=== PATIENT | male | born 1970 | race Caucasian/White ===

== ENCOUNTER 2018-03-04 15:38 | Inpatient (IN) | payer BC ==
[~2018-03-04] VITALS: Ht 182.9 cm; Wt 129.0 kg
[2018-03-04] MEDS ORDERED: normal saline 1000ML IV soln IV ONE (16:10)
[2018-03-04] MEDS ORDERED: morphine 4 MG/ML inj SYRINge IV ONE ×2 (16:15→17:25)
[2018-03-04 16:36] LABS: BASOPHILS # (AUTO) 0.2 X10'3 (0-0.2); EOSINOPHILS % (AUTO) 0 % (0-6); HEMATOCRIT 48.2 % (42.0-52.0); HEMOGLOBIN 16.3 g/dl (14.0-17.9); LYMPHOCYTES # (AUTO) 0.4 X10'3 (1.1-4.8); LYMPHOCYTES % (AUTO) 1.9 % (21-51); MEAN CORPUSCULAR HEMOGLOBIN 30.3 PG (27.0-31.0); MEAN CORPUSCULAR HGB CONC 33.7 % (33.0-36.5); MEAN CORPUSCULAR VOLUME 89.9 FL (78-98); MEAN PLATELET VOLUME 8.1 FL (7.4-10.4); MONOCYTES # (AUTO) 1.5 X10'3 (0-0.9); MONOCYTES % (AUTO) 6.7 % (2-12); NEUTROPHILS # (AUTO) 20.7 X10'3 (1.8-7.7); NEUTROPHILS % (AUTO) 90.4 % (42-75); PLATELET COUNT 265 X10'3 (140-440); RED BLOOD COUNT 5.37 X10'6 (4.70-6.10); RED CELL DISTRIBUTION WIDTH 13.4 % (11.5-14.5); WHITE BLOOD COUNT 22.9 X10'3 (4.5-11.0)
[2018-03-04 16:55] LABS: ALANINE AMINOTRANSFERASE 45 U/L (12-78); ALBUMIN 3.9 G/DL (3.4-5.0); ALBUMIN/GLOBULIN RATIO 0.9 (1.1-1.5); ALKALINE PHOSPHATASE 63 IU/L (46-116); ANION GAP 13 (8-16); ASPARTATE AMINO TRANSFERASE 20 U/L (10-37); BLOOD UREA NITROGEN 9 MG/DL (7-18); BUN/CREATININE RATIO 9.3 (5.4-32.0); CALCIUM 8.9 MG/DL (8.5-10.1); CHLORIDE 98 MMOL/L (99-107); CREATININE 0.97 MG/DL (0.60-1.10); GLUCOSE 126 MG/DL (70-104); POTASSIUM 3.7 MMOL/L (3.5-5.1); SODIUM 135 MMOL/L (135-145); TOTAL CARBON DIOXIDE 24.2 MMOL/L (24-32); TOTAL PROTEIN 8.1 G/DL (6.4-8.2); eGFR 82 ML/MIN
[2018-03-04 16:57] LABS: PARTIAL THROMBOPLASTIN TIME 32 SECONDS (22-32); PROTHROMBIN TIME 10.5 SECONDS (9.0-12.0)
[2018-03-04] MEDS ORDERED: metroNIDAZOLE-Flagyl 500mg/NS 100 ML IV STA (17:01)
[2018-03-04] MEDS ORDERED: ciprofloxacin lact 400MG/200ML 200 ML IV SCH (17:05)
[2018-03-04] MEDS ORDERED: ciprofloxacin lact 400MG/200ML 200 ML IV ONE (17:05)
[2018-03-04] MEDS ORDERED: NO HOME MEDS (17:34)
[2018-03-04 17:56] LABS: CLARITY,URINE CLEAR (Clear); COLOR,URINE YELLOW (Yellow); GLUCOSE, URINE NEGATIVE (Neg); KETONES,URINE >=80 mg/dl (Neg); LEUKOCYTE ESTERASE ,URINE NEGATIVE (Neg); NITRITES, URINE NEGATIVE (Neg); OCCULT BLOOD,URINE TRACE-INTACT (Neg); PH,URINE 7.5 (4.8-8.0); PROTEIN,URINE TRACE mg/dl (Neg); UROBILINOGEN,URINE 0.2 E.U/dL (0.2-1.0)
[2018-03-04 17:57] LABS: UA COLLECTION TYPE CLN CATCH MIDSTREAM
[2018-03-04 18:02] LABS: SQUAMOUS EPITHELIAL CELL,UR FEW /LPF (FEW)
[2018-03-04 18:03] LABS: BACTERIA,URINE NONE SEEN /HPF (Neg); WBC,URINE NONE SEEN /HPF (0-4)
[2018-03-04] MEDS ORDERED: ASPI-1265 PO (18:52)
[2018-03-04] MEDS ORDERED: HYDROmorphone 1 mg/ml syringe IV PRN ×2 (19:45)
[2018-03-04] MEDS ORDERED: ondansetron/PF 4mg/2ml inj IV PRN (19:45)
[2018-03-04] MEDS ORDERED: bisacodyl 10mg suppository rectal RC PRN (19:45)
[2018-03-04] MEDS ORDERED: morphine 2 MG/ML inj. syringe IV PRN ×2 (19:45)
[2018-03-04] MEDS ORDERED: magnesium hydroxide 30ml (MOM) UD suspension PO PRN (19:45)
[2018-03-04] MEDS ORDERED: acetaminophen 650mg rectal suppository RC PRN (19:45)
[2018-03-04] MEDS ORDERED: HYDROcodone/acetaminophen 10/325mg tab PO PRN (19:45)
[2018-03-04] MEDS ORDERED: acetaminophen 325mg tablet PO PRN (19:45)
[2018-03-04] MEDS ORDERED: diphenhydrAMINE 25mg capsule PO PRN (19:45)
[2018-03-04] MEDS ORDERED: diphenhydrAMINE 50 mg/ml inj IV PRN (19:45)
[2018-03-04] MEDS ORDERED: mag hydrox/Alum hydrox/simeth 30ml oral suspension PO PRN (19:45)
[2018-03-04] MEDS ORDERED: HYDROcodone/acetaminophen 5mg/325mg tablet PO PRN (19:45)
[2018-03-04 19:58] LABS: TOTAL CELLS COUNTED 100
[2018-03-04 19:59] LABS: PLATELET ESTIMATE NORMAL
[2018-03-04 20:14] LABS: URINE AMPHETAMINE SCREEN NEGATIVE (Neg); URINE BARBITUATE SCREEN NEGATIVE (Neg); URINE BENZODIAZEPINES SCREEN NEGATIVE (Neg); URINE CANNABINOID SCREEN POSITIVE (Neg); URINE COCAINE SCREEN NEGATIVE (Neg); URINE METHADONE SCREEN NEGATIVE (Neg); URINE OPIATE SCREEN POSITIVE (Neg); URINE PHENCYCLIDINE SCREEN NEGATIVE (Neg)
[2018-03-04 20:22] LABS: LIPASE 57 U/L (73-393); PHOSPHORUS 2.2 MG/DL (2.3-4.5); TROPONIN I < 0.04 NG/ML (0.0-0.05)
[2018-03-04] MEDS: docusate sod 100mg capsule PO SCH (20:37)
[2018-03-04] MEDS: normal saline 1000ml 1,000 ML IV SCH (20:37)
[2018-03-04] MEDS: pantoprazole 40 MG vial IV SCH (20:37)
[2018-03-04] MEDS ORDERED: temazepam 15mg capsule PO PRN (21:00)
[2018-03-04 21:02] VITALS: BP 143/77
[2018-03-04] MEDS: piperacillin/tazo 4.5gm/100ml 100 ML IV SCH (23:23)
[2018-03-05] VITALS: BP 110/68
[2018-03-05 04:41] LABS: BASOPHILS % (AUTO) 0.1 % (0-1); EOSINOPHILS # (AUTO) 0.3 X10'3 (0-0.9); EOSINOPHILS % (AUTO) 1.4 % (0-6); HEMOGLOBIN 14.3 g/dl (14.0-17.9); LYMPHOCYTES # (AUTO) 0.9 X10'3 (1.1-4.8); LYMPHOCYTES % (AUTO) 4.2 % (21-51); MEAN CORPUSCULAR HEMOGLOBIN 30.5 PG (27.0-31.0); MEAN CORPUSCULAR VOLUME 89.8 FL (78-98); MONOCYTES # (AUTO) 1.5 X10'3 (0-0.9); MONOCYTES % (AUTO) 7.1 % (2-12); NEUTROPHILS # (AUTO) 18.7 X10'3 (1.8-7.7); NEUTROPHILS % (AUTO) 87.2 % (42-75); PLATELET COUNT 240 X10'3 (140-440); RED BLOOD COUNT 4.68 X10'6 (4.70-6.10); RED CELL DISTRIBUTION WIDTH 13.6 % (11.5-14.5); WHITE BLOOD COUNT 21.4 X10'3 (4.5-11.0)
[2018-03-05 05:03] LABS: ALANINE AMINOTRANSFERASE 32 U/L (12-78); ALBUMIN 3.1 G/DL (3.4-5.0); ALBUMIN/GLOBULIN RATIO 0.9 (1.1-1.5); ALKALINE PHOSPHATASE 52 IU/L (46-116); ANION GAP 9 (8-16); ASPARTATE AMINO TRANSFERASE 20 U/L (10-37); BILIRUBIN,TOTAL 1.1 MG/DL (0.1-1.0); BLOOD UREA NITROGEN 8 MG/DL (7-18); BUN/CREATININE RATIO 7.8 (5.4-32.0); CALCIUM 8.1 MG/DL (8.5-10.1); CHLORIDE 103 MMOL/L (99-107); CREATININE 1.03 MG/DL (0.60-1.10); GLUCOSE 103 MG/DL (70-104); POTASSIUM 3.8 MMOL/L (3.5-5.1); SODIUM 137 MMOL/L (135-145); TOTAL CARBON DIOXIDE 25.2 MMOL/L (24-32); TOTAL PROTEIN 6.6 G/DL (6.4-8.2); eGFR 77 ML/MIN
[2018-03-05] MEDS: normal saline 1000ml 1,000 ML IV SCH ×2 (05:43→07:17)
[2018-03-05 07:00] VITALS: BP 153/93
[2018-03-05] MEDS: piperacillin/tazo 4.5gm/100ml 100 ML IV SCH ×2 (07:14→16:49)
[2018-03-05] MEDS: docusate sod 100mg capsule PO SCH ×2 (07:14→19:46)
[2018-03-05] MEDS: pantoprazole 40 MG vial IV SCH (08:55)
[2018-03-05 11:00] VITALS: BP 144/80
[2018-03-05] MEDS ORDERED: pneumococcal 23-VAL P-sac vacc 25 mcg/0.5ml vial IMVAC ONE (11:00)
[2018-03-05] MEDS ORDERED: potassium Cl 40MEQ/NS 500ml 500 ML IV PRN ×2 (11:30)
[2018-03-05] MEDS ORDERED: magnesium Cl slow-release 64mg tablet PO PRN (11:30)
[2018-03-05] MEDS ORDERED: potassium Cl 20 mEq SR tablet PO PRN ×2 (11:30)
[2018-03-05] MEDS ORDERED: magnesium 4gm in 100ml NS 100 ML IV PRN (11:30)
[2018-03-05] MEDS ORDERED: potassium phosphate inj 15 MMOL in normal saline 250ml IV soln 245 ML IV ONE (11:30)
[2018-03-05 11:51] LABS: MAGNESIUM 2.1 MG/DL (1.5-2.4)
[2018-03-05] MEDS: enoxaparin 40mg/0.4ml syringe SUBCUT SCH (12:58)
[2018-03-05] MEDS: Potassium Cl inj 20 MEQ in normal saline 1000ml 1,000 ML IV SCH ×2 (13:11→23:06)
[2018-03-05] MEDS ORDERED: Potassium Cl inj 20 MEQ in normal saline 1000ml 1,000 ML IV SCH (19:43)
[2018-03-05] MEDS: lactobacillus rhamnosus 10,000 MMU CELLS/CAPSULE PO SCH (19:45)
[2018-03-05 20:00] VITALS: BP 130/80
[2018-03-06] VITALS: BP 125/76
[2018-03-06] MEDS: piperacillin/tazo 4.5gm/100ml 100 ML IV SCH ×2 (00:58→08:48)
[2018-03-06 05:13] LABS: ALANINE AMINOTRANSFERASE 23 U/L (12-78); ALBUMIN 2.8 G/DL (3.4-5.0); ALBUMIN/GLOBULIN RATIO 0.7 (1.1-1.5); ALKALINE PHOSPHATASE 52 IU/L (46-116); ANION GAP 11 (8-16); ASPARTATE AMINO TRANSFERASE 15 U/L (10-37); BILIRUBIN,TOTAL 0.6 MG/DL (0.1-1.0); BLOOD UREA NITROGEN 8 MG/DL (7-18); BUN/CREATININE RATIO 10.7 (5.4-32.0); CALCIUM 8.2 MG/DL (8.5-10.1); CHLORIDE 104 MMOL/L (99-107); CREATININE 0.75 MG/DL (0.60-1.10); GLUCOSE 85 MG/DL (70-104); MAGNESIUM 2.2 MG/DL (1.5-2.4); POTASSIUM 3.5 MMOL/L (3.5-5.1); SODIUM 138 MMOL/L (135-145); TOTAL CARBON DIOXIDE 23.1 MMOL/L (24-32); TOTAL PROTEIN 6.7 G/DL (6.4-8.2); eGFR > 90 ML/MIN
[2018-03-06 05:21] LABS: BASOPHILS # (AUTO) 0.1 X10'3 (0-0.2); BASOPHILS % (AUTO) 0.3 % (0-1); EOSINOPHILS # (AUTO) 0.1 X10'3 (0-0.9); EOSINOPHILS % (AUTO) 0.4 % (0-6); HEMATOCRIT 40.6 % (42.0-52.0); HEMOGLOBIN 13.7 g/dl (14.0-17.9); LYMPHOCYTES # (AUTO) 1.1 X10'3 (1.1-4.8); LYMPHOCYTES % (AUTO) 6.5 % (21-51); MEAN CORPUSCULAR HEMOGLOBIN 30.6 PG (27.0-31.0); MEAN CORPUSCULAR HGB CONC 33.9 % (33.0-36.5); MEAN CORPUSCULAR VOLUME 90.4 FL (78-98); MEAN PLATELET VOLUME 8.8 FL (7.4-10.4); MONOCYTES % (AUTO) 5.9 % (2-12); NEUTROPHILS # (AUTO) 14.8 X10'3 (1.8-7.7); NEUTROPHILS % (AUTO) 86.9 % (42-75); PLATELET COUNT 219 X10'3 (140-440); RED BLOOD COUNT 4.49 X10'6 (4.70-6.10); RED CELL DISTRIBUTION WIDTH 13.8 % (11.5-14.5)
[2018-03-06 07:30] VITALS: BP 146/77
[2018-03-06] MEDS: docusate sod 100mg capsule PO SCH (08:49)
[2018-03-06] MEDS: pantoprazole 40 MG vial IV SCH (08:49)
[2018-03-06] MEDS: enoxaparin 40mg/0.4ml syringe SUBCUT SCH (08:49)
[2018-03-06] MEDS: lactobacillus rhamnosus 10,000 MMU CELLS/CAPSULE PO SCH ×2 (08:49→21:30)
[2018-03-06] MEDS: Potassium Cl inj 20 MEQ in normal saline 1000ml 1,000 ML IV SCH ×2 (09:38→19:18)
[2018-03-06 10:59] VITALS: BP 139/64
[2018-03-06] MEDS ORDERED: potassium phosphate inj 30 MMOL in normal saline 500ml IV soln 490 ML IV ONE (12:10)
[2018-03-06] MEDS: levoFLOXACIN-Levaquin 500mg/D5 100 ML IV SCH (12:34)
[2018-03-06] MEDS: metroNIDAZOLE-Flagyl 500mg/NS 100 ML IV SCH (16:04)
[2018-03-06 20:00] VITALS: BP 121/78
[2018-03-06] MEDS: diatr meglu/diatrizoate 30ml oral sol.-(3 dose) bottle PO SCH (21:30)
[2018-03-07] VITALS: BP 125/79
[2018-03-07] MEDS: metroNIDAZOLE-Flagyl 500mg/NS 100 ML IV SCH ×3 (00:20→15:08)
[2018-03-07] MEDS: Potassium Cl inj 20 MEQ in normal saline 1000ml 1,000 ML IV SCH ×3 (05:09→18:36)
[2018-03-07 05:17] LABS: BASOPHILS # (AUTO) 0.1 X10'3 (0-0.2); BASOPHILS % (AUTO) 0.6 % (0-1); EOSINOPHILS # (AUTO) 0.2 X10'3 (0-0.9); EOSINOPHILS % (AUTO) 2.3 % (0-6); HEMATOCRIT 39.6 % (42.0-52.0); HEMOGLOBIN 13.4 g/dl (14.0-17.9); LYMPHOCYTES # (AUTO) 1.3 X10'3 (1.1-4.8); LYMPHOCYTES % (AUTO) 14.1 % (21-51); MEAN CORPUSCULAR HEMOGLOBIN 30.5 PG (27.0-31.0); MEAN CORPUSCULAR HGB CONC 33.8 % (33.0-36.5); MEAN CORPUSCULAR VOLUME 90.3 FL (78-98); MEAN PLATELET VOLUME 8.1 FL (7.4-10.4); MONOCYTES # (AUTO) 0.7 X10'3 (0-0.9); NEUTROPHILS # (AUTO) 6.9 X10'3 (1.8-7.7); PLATELET COUNT 263 X10'3 (140-440); RED BLOOD COUNT 4.39 X10'6 (4.70-6.10); RED CELL DISTRIBUTION WIDTH 13.5 % (11.5-14.5); WHITE BLOOD COUNT 9.2 X10'3 (4.5-11.0)
[2018-03-07 06:37] LABS: ALANINE AMINOTRANSFERASE 38 U/L (12-78); ALBUMIN 2.6 G/DL (3.4-5.0); ALBUMIN/GLOBULIN RATIO 0.7 (1.1-1.5); ALKALINE PHOSPHATASE 38 IU/L (46-116); ANION GAP 10 (8-16); ASPARTATE AMINO TRANSFERASE 25 U/L (10-37); BILIRUBIN,TOTAL 0.3 MG/DL (0.1-1.0); BLOOD UREA NITROGEN 8 MG/DL (7-18); BUN/CREATININE RATIO 10.4 (5.4-32.0); CALCIUM 8.4 MG/DL (8.5-10.1); CHLORIDE 107 MMOL/L (99-107); CREATININE 0.77 MG/DL (0.60-1.10); GLUCOSE 85 MG/DL (70-104); MAGNESIUM 2.1 MG/DL (1.5-2.4); PHOSPHORUS 2.6 MG/DL (2.3-4.5); POTASSIUM 3.7 MMOL/L (3.5-5.1); SODIUM 141 MMOL/L (135-145); TOTAL CARBON DIOXIDE 24.5 MMOL/L (24-32); TOTAL PROTEIN 6.4 G/DL (6.4-8.2); eGFR > 90 ML/MIN
[2018-03-07 07:00] VITALS: BP 137/80
[2018-03-07] MEDS: pantoprazole 40 MG vial IV SCH (07:04)
[2018-03-07] MEDS: diatr meglu/diatrizoate 30ml oral sol.-(3 dose) bottle PO SCH ×2 (07:04→08:04)
[2018-03-07] MEDS: enoxaparin 40mg/0.4ml syringe SUBCUT SCH (07:05)
[2018-03-07] MEDS: lactobacillus rhamnosus 10,000 MMU CELLS/CAPSULE PO SCH ×2 (08:00→19:08)
[2018-03-07] MEDS: levoFLOXACIN-Levaquin 500mg/D5 100 ML IV SCH (09:38)
[2018-03-07 12:13] VITALS: BP 128/84
[2018-03-07 18:00] VITALS: BP 149/89
[2018-03-08] VITALS: BP 148/84
[2018-03-08] MEDS: metroNIDAZOLE-Flagyl 500mg/NS 100 ML IV SCH ×4 (00:01→23:26)
[2018-03-08] MEDS: Potassium Cl inj 20 MEQ in normal saline 1000ml 1,000 ML IV SCH ×2 (04:33→15:59)
[2018-03-08 05:27] LABS: ALANINE AMINOTRANSFERASE 38 U/L (12-78); ALBUMIN 2.8 G/DL (3.4-5.0); ALBUMIN/GLOBULIN RATIO 0.7 (1.1-1.5); ALKALINE PHOSPHATASE 48 IU/L (46-116); ANION GAP 9 (8-16); ASPARTATE AMINO TRANSFERASE 22 U/L (10-37); BILIRUBIN,TOTAL 0.4 MG/DL (0.1-1.0); BLOOD UREA NITROGEN 6 MG/DL (7-18); BUN/CREATININE RATIO 7.6 (5.4-32.0); CALCIUM 8.5 MG/DL (8.5-10.1); CHLORIDE 106 MMOL/L (99-107); CREATININE 0.79 MG/DL (0.60-1.10); GLUCOSE 95 MG/DL (70-104); POTASSIUM 3.7 MMOL/L (3.5-5.1); SODIUM 141 MMOL/L (135-145); TOTAL CARBON DIOXIDE 25.9 MMOL/L (24-32); TOTAL PROTEIN 6.7 G/DL (6.4-8.2); eGFR > 90 ML/MIN
[2018-03-08 05:50] LABS: BASOPHILS % (AUTO) 0.3 % (0-1); EOSINOPHILS # (AUTO) 0.2 X10'3 (0-0.9); EOSINOPHILS % (AUTO) 2.4 % (0-6); HEMATOCRIT 40.9 % (42.0-52.0); HEMOGLOBIN 13.9 g/dl (14.0-17.9); LYMPHOCYTES # (AUTO) 1.3 X10'3 (1.1-4.8); LYMPHOCYTES % (AUTO) 14.8 % (21-51); MEAN CORPUSCULAR HEMOGLOBIN 30.6 PG (27.0-31.0); MEAN CORPUSCULAR HGB CONC 34.1 % (33.0-36.5); MEAN CORPUSCULAR VOLUME 89.6 FL (78-98); MEAN PLATELET VOLUME 8.6 FL (7.4-10.4); MONOCYTES # (AUTO) 0.7 X10'3 (0-0.9); MONOCYTES % (AUTO) 7.8 % (2-12); NEUTROPHILS # (AUTO) 6.5 X10'3 (1.8-7.7); NEUTROPHILS % (AUTO) 74.7 % (42-75); PLATELET COUNT 270 X10'3 (140-440); RED BLOOD COUNT 4.56 X10'6 (4.70-6.10); RED CELL DISTRIBUTION WIDTH 13.4 % (11.5-14.5); WHITE BLOOD COUNT 8.7 X10'3 (4.5-11.0)
[2018-03-08 07:00] VITALS: BP_SYST 135; BP_SYST 174; BP_DIAS 85; BP_DIAS 98
[2018-03-08] MEDS: pantoprazole 40 MG vial IV SCH (08:24)
[2018-03-08] MEDS: lactobacillus rhamnosus 10,000 MMU CELLS/CAPSULE PO SCH ×2 (08:24→19:19)
[2018-03-08] MEDS: enoxaparin 40mg/0.4ml syringe SUBCUT SCH (08:24)
[2018-03-08] MEDS: levoFLOXACIN-Levaquin 500mg/D5 100 ML IV SCH (09:34)
[2018-03-08 11:00] VITALS: BP_SYST 132; BP_SYST 138; BP_DIAS 81; BP_DIAS 82
[2018-03-08 18:00] VITALS: BP 147/78
[2018-03-09] VITALS: BP 146/88
[2018-03-09] MEDS: Potassium Cl inj 20 MEQ in normal saline 1000ml 1,000 ML IV SCH (03:22)
[2018-03-09 06:12] LABS: BASOPHILS # (AUTO) 0.2 X10'3 (0-0.2); BASOPHILS % (AUTO) 1.6 % (0-1); EOSINOPHILS # (AUTO) 0.3 X10'3 (0-0.9); EOSINOPHILS % (AUTO) 2.4 % (0-6); HEMATOCRIT 43.6 % (42.0-52.0); HEMOGLOBIN 14.6 g/dl (14.0-17.9); LYMPHOCYTES # (AUTO) 1.4 X10'3 (1.1-4.8); LYMPHOCYTES % (AUTO) 13.3 % (21-51); MEAN CORPUSCULAR HEMOGLOBIN 30.1 PG (27.0-31.0); MEAN CORPUSCULAR HGB CONC 33.6 % (33.0-36.5); MEAN CORPUSCULAR VOLUME 89.7 FL (78-98); MEAN PLATELET VOLUME 8.2 FL (7.4-10.4); MONOCYTES # (AUTO) 0.8 X10'3 (0-0.9); MONOCYTES % (AUTO) 7.6 % (2-12); NEUTROPHILS # (AUTO) 7.8 X10'3 (1.8-7.7); NEUTROPHILS % (AUTO) 75.1 % (42-75); PLATELET COUNT 314 X10'3 (140-440); RED BLOOD COUNT 4.86 X10'6 (4.70-6.10); RED CELL DISTRIBUTION WIDTH 13.3 % (11.5-14.5); WHITE BLOOD COUNT 10.4 X10'3 (4.5-11.0)
[2018-03-09 06:34] LABS: ALANINE AMINOTRANSFERASE 46 U/L (12-78); ALBUMIN/GLOBULIN RATIO 0.7 (1.1-1.5); ALKALINE PHOSPHATASE 50 IU/L (46-116); ANION GAP 12 (8-16); ASPARTATE AMINO TRANSFERASE 28 U/L (10-37); BILIRUBIN,TOTAL 0.4 MG/DL (0.1-1.0); BLOOD UREA NITROGEN 5 MG/DL (7-18); BUN/CREATININE RATIO 6.1 (5.4-32.0); CALCIUM 8.7 MG/DL (8.5-10.1); CHLORIDE 104 MMOL/L (99-107); CREATININE 0.82 MG/DL (0.60-1.10); GLUCOSE 93 MG/DL (70-104); MAGNESIUM 1.8 MG/DL (1.5-2.4); POTASSIUM 3.8 MMOL/L (3.5-5.1); SODIUM 140 MMOL/L (135-145); TOTAL CARBON DIOXIDE 24.4 MMOL/L (24-32); TOTAL PROTEIN 7.1 G/DL (6.4-8.2); eGFR > 90 ML/MIN
[2018-03-09] MEDS: potassium Cl 20mEq in NS 1,000 ML IV SCH ×2 (07:05→15:49)
[2018-03-09] MEDS: metroNIDAZOLE-Flagyl 500mg/NS 100 ML IV SCH ×2 (07:24→15:49)
[2018-03-09 07:56] VITALS: BP 143/87
[2018-03-09] MEDS: levoFLOXACIN-Levaquin 500mg/D5 100 ML IV SCH (08:46)
[2018-03-09] MEDS: lactobacillus rhamnosus 10,000 MMU CELLS/CAPSULE PO SCH ×2 (08:46→19:17)
[2018-03-09] MEDS: enoxaparin 40mg/0.4ml syringe SUBCUT SCH (08:47)
[2018-03-09] MEDS: pantoprazole 40 MG vial IV SCH (08:47)
[2018-03-09] MEDS: acetaminophen 325mg tablet PO PRN ×3 (09:08→23:00)
[2018-03-09 12:18] VITALS: BP 138/91
[2018-03-09 18:00] VITALS: BP 147/78
[2018-03-10] VITALS: BP 144/87
[2018-03-10] MEDS: metroNIDAZOLE-Flagyl 500mg/NS 100 ML IV SCH ×3 (00:11→16:24)
[2018-03-10] MEDS: potassium Cl 20mEq in NS 1,000 ML IV SCH ×2 (03:05→05:04)
[2018-03-10 06:28] LABS: ALBUMIN 3.2 G/DL (3.4-5.0); ANION GAP 9 (8-16); BLOOD UREA NITROGEN 6 MG/DL (7-18); BUN/CREATININE RATIO 7.1 (5.4-32.0); CALCIUM 8.8 MG/DL (8.5-10.1); CHLORIDE 104 MMOL/L (99-107); CREATININE 0.85 MG/DL (0.60-1.10); GLUCOSE 96 MG/DL (70-104); POTASSIUM 4.2 MMOL/L (3.5-5.1); SODIUM 140 MMOL/L (135-145); TOTAL CARBON DIOXIDE 27.1 MMOL/L (24-32); eGFR > 90 ML/MIN
[2018-03-10 06:32] VITALS: BP 136/83
[2018-03-10] MEDS: lactobacillus rhamnosus 10,000 MMU CELLS/CAPSULE PO SCH (07:15)
[2018-03-10] MEDS: pantoprazole 40 MG vial IV SCH (07:15)
[2018-03-10] MEDS: enoxaparin 40mg/0.4ml syringe SUBCUT SCH (07:16)
[2018-03-10] MEDS: levoFLOXACIN-Levaquin 500mg/D5 100 ML IV SCH (10:07)
[2018-03-10 11:15] VITALS: BP 123/75
[2018-03-10] MEDS ORDERED: METR500T4 PO (14:52)
[2018-03-10] MEDS ORDERED: LEVO500T2 PO (14:52)
[2018-03-10] MEDS ORDERED: LACT1CAP26 PO (14:52)
== END 2018-03-10 18:00 | disposition home or self-care (01) | DRG 872 ==
LOC: ER 15:40 → ED HOLD 19:43 → SUR 3N 20:55
PROVIDERS: ADMIT Family Medicine; ATTEND Internal Medicine
PROC: 3E0234Z Introduction of Serum, Toxoid and Vaccine into Muscle, Percutaneous Approach (ICD-10-PCS; principal; 2018-03-05)
PROC: 3E02340 Introduction of Influenza Vaccine into Muscle, Percutaneous Approach (ICD-10-PCS; 2018-03-05)
DX: A41.9 Sepsis, unspecified organism (principal); K57.20 Diverticulitis of large intestine with perforation and abscess without bleeding; E86.0 Dehydration; I10 Essential (primary) hypertension; F19.10 Other psychoactive substance abuse, uncomplicated; E83.39 Other disorders of phosphorus metabolism; F17.200 Nicotine dependence, unspecified, uncomplicated; K76.0 Fatty (change of) liver, not elsewhere classified; Z23 Encounter for immunization; Z79.899 Other long term (current) drug therapy; Z79.82 Long term (current) use of aspirin
CPT/HCPCS: 36415; 71045; 74176; 80048; 80053; 80305; 81001; 83605; 83690; 83735; 83880; 84100; 84145; 84443; 84484; 85025; 85610; 85730; 87040; 87070; 90732; 93005; 96365; 96366; 96368; 96375; 96376; 99285; C9113; G0378; J0744; J1650; J1956; J2270; J2543; J3480; J3490; J7030; Q2037; Q9963

== ENCOUNTER 2020-12-27 20:08 | Inpatient (IN) | payer BC ==
[~2020-12-27] VITALS: Ht 182.9 cm; Wt 120.0 kg
[~2020-12-27 20:08] MED LIST: LACT1CAP26 PO
[2020-12-27 20:52] LABS: CLARITY,URINE CLEAR (Clear); COLOR,URINE YELLOW (Yellow); GLUCOSE, URINE NEGATIVE (Neg); KETONES,URINE 15 mg/dl (Neg); LEUKOCYTE ESTERASE ,URINE NEGATIVE (Neg); NITRITES, URINE NEGATIVE (Neg); OCCULT BLOOD,URINE TRACE-INTACT (Neg); PROTEIN,URINE NEGATIVE (Neg); UROBILINOGEN,URINE 0.2 E.U/dL (0.2-1.0)
[2020-12-27] MEDS ORDERED: temazepam 15mg capsule PO PRN (21:00)
[2020-12-27 21:07] LABS: UA COLLECTION TYPE CLN CATCH MIDSTREAM
[2020-12-27 21:08] LABS: BASOPHILS # (AUTO) 0.1 X10'3 (0-0.2); BASOPHILS % (AUTO) 0.8 % (0-1); EOSINOPHILS # (AUTO) 0.3 X10'3 (0-0.9); EOSINOPHILS % (AUTO) 2.8 % (0-6); HEMATOCRIT 49.2 % (42.0-52.0); HEMOGLOBIN 16.8 g/dl (14.0-17.9); LYMPHOCYTES # (AUTO) 2.3 X10'3 (1.1-4.8); LYMPHOCYTES % (AUTO) 20.9 % (21-51); MEAN CORPUSCULAR HEMOGLOBIN 30.7 PG (27.0-31.0); MEAN CORPUSCULAR HGB CONC 34.1 g/dL (33.0-36.5); MEAN CORPUSCULAR VOLUME 90.1 FL (78-98); MEAN PLATELET VOLUME 7.6 FL (7.4-10.4); MONOCYTES # (AUTO) 0.9 X10'3 (0-0.9); MONOCYTES % (AUTO) 8.5 % (2-12); NEUTROPHILS # (AUTO) 7.3 X10'3 (1.8-7.7); PLATELET COUNT 275 X10'3 (140-440); RED BLOOD COUNT 5.47 X10'6 (4.70-6.10); RED CELL DISTRIBUTION WIDTH 13.6 % (11.5-14.5); WHITE BLOOD COUNT 10.9 X10'3 (4.5-11.0)
[2020-12-27 21:09] LABS: BACTERIA,URINE NONE SEEN /HPF (Neg); RBC,URINE 0-2 /HPF (0-2); SQUAMOUS EPITHELIAL CELL,UR NONE SEEN /LPF (FEW); WBC,URINE 0-4 /HPF (0-4)
[2020-12-27 21:23] LABS: ALANINE AMINOTRANSFERASE 39 U/L (12-78); ALBUMIN 4.3 G/DL (3.4-5.0); ALBUMIN/GLOBULIN RATIO 1.3 (1.1-1.5); ALKALINE PHOSPHATASE 63 IU/L (46-116); ANION GAP 14 (8-16); ASPARTATE AMINO TRANSFERASE 22 U/L (10-37); BILIRUBIN,TOTAL 0.9 MG/DL (0.1-1.0); BLOOD UREA NITROGEN 7 MG/DL (7-18); BUN/CREATININE RATIO 8.1 (5.4-32.0); CALCIUM 8.6 MG/DL (8.5-10.1); CHLORIDE 105 MMOL/L (99-107); CREATININE 0.86 MG/DL (0.60-1.10); GLUCOSE 87 MG/DL (70-104); LIPASE < 50 U/L (73-393); POTASSIUM 3.8 MMOL/L (3.5-5.1); SODIUM 143 MMOL/L (135-145); TOTAL CARBON DIOXIDE 24.1 MMOL/L (24-32); TOTAL PROTEIN 7.7 G/DL (6.4-8.2); eGFR > 90 ML/MIN
[2020-12-27] MEDS ORDERED: piperacillin/tazo 3.375gm/50ml 50 ML IV ONE (22:15)
[2020-12-27] MEDS ORDERED: normal saline 1000ML IV soln IV ONE (22:15)
[2020-12-27] MEDS ORDERED: ondansetron/PF 4mg/2ml inj IV ONE (22:20)
[2020-12-27] MEDS ORDERED: ketorolac trometh. 30mg/ml inj. IV ONE (22:20)
[2020-12-27] MEDS ORDERED: morphine 4 MG/ML inj SYRINge IV PRN (22:20)
[2020-12-27] MEDS ORDERED: HYDROcodone/acetaminophen 5mg/325mg tablet PO PRN (22:50)
[2020-12-27] MEDS ORDERED: potassium Cl 20 mEq SR tablet PO PRN ×2 (22:50)
[2020-12-27] MEDS ORDERED: magnesium 4gm in 100ml NS 100 ML IV PRN (22:50)
[2020-12-27] MEDS ORDERED: potassium Cl 40MEQ/1/2NS 520ml 520 ML IV PRN ×2 (22:50)
[2020-12-27] MEDS ORDERED: ondansetron/PF 4mg/2ml inj IV PRN (22:50)
[2020-12-27] MEDS ORDERED: magnesium Cl slow-release 64mg tablet PO PRN (22:50)
[2020-12-27] MEDS ORDERED: acetaminophen 325mg tablet PO PRN ×2 (22:50)
[2020-12-27] MEDS ORDERED: HYDROcodone/acetaminophen 10/325mg tab PO PRN (22:50)
[2020-12-27] MEDS ORDERED: morphine 2 MG/ML inj. syringe IV PRN ×2 (22:50)
[2020-12-27] MEDS ORDERED: magnesium 2GM in 50ml NS 50 ML IV PRN (22:50)
[2020-12-27] MEDS: normal saline 1000ml 1,000 ML IV SCH (22:50)
[2020-12-27] MEDS ORDERED: NO HOME MEDS (23:16)
--- NOTE | 2020-12-28 04:21 | NUR ---
Patient resting quietly in stretcher, even and unlabored respirations. Able to use urinal independently at bedside. Denies any pain or further needs at this time.
[2020-12-28 04:39] LABS: BASOPHILS # (AUTO) 0.1 X10'3 (0-0.2); BASOPHILS % (AUTO) 0.9 % (0-1); EOSINOPHILS # (AUTO) 0.3 X10'3 (0-0.9); EOSINOPHILS % (AUTO) 3.6 % (0-6); HEMATOCRIT 46.7 % (42.0-52.0); HEMOGLOBIN 15.5 g/dl (14.0-17.9); LYMPHOCYTES # (AUTO) 1.9 X10'3 (1.1-4.8); LYMPHOCYTES % (AUTO) 24.8 % (21-51); MEAN CORPUSCULAR HEMOGLOBIN 30.3 PG (27.0-31.0); MEAN CORPUSCULAR HGB CONC 33.1 g/dL (33.0-36.5); MEAN CORPUSCULAR VOLUME 91.5 FL (78-98); MEAN PLATELET VOLUME 8.2 FL (7.4-10.4); MONOCYTES # (AUTO) 0.7 X10'3 (0-0.9); MONOCYTES % (AUTO) 9.6 % (2-12); NEUTROPHILS # (AUTO) 4.6 X10'3 (1.8-7.7); NEUTROPHILS % (AUTO) 61.1 % (42-75); PLATELET COUNT 205 X10'3 (140-440); RED BLOOD COUNT 5.11 X10'6 (4.70-6.10); WHITE BLOOD COUNT 7.5 X10'3 (4.5-11.0)
[2020-12-28 05:20] LABS: ALANINE AMINOTRANSFERASE 35 U/L (12-78); ALBUMIN 3.6 G/DL (3.4-5.0); ALBUMIN/GLOBULIN RATIO 1.2 (1.1-1.5); ALKALINE PHOSPHATASE 53 IU/L (46-116); ANION GAP 13 (8-16); ASPARTATE AMINO TRANSFERASE 25 U/L (10-37); BILIRUBIN,TOTAL 0.8 MG/DL (0.1-1.0); BLOOD UREA NITROGEN 8 MG/DL (7-18); BUN/CREATININE RATIO 9.9 (5.4-32.0); CALCIUM 7.9 MG/DL (8.5-10.1); CHLORIDE 109 MMOL/L (99-107); CREATININE 0.81 MG/DL (0.60-1.10); GLUCOSE 82 MG/DL (70-104); MAGNESIUM 2.2 MG/DL (1.5-2.4); POTASSIUM 3.9 MMOL/L (3.5-5.1); SODIUM 143 MMOL/L (135-145); TOTAL CARBON DIOXIDE 20.8 MMOL/L (24-32); TOTAL PROTEIN 6.7 G/DL (6.4-8.2); eGFR > 90 ML/MIN
[2020-12-28 07:30] VITALS: BP 172/81
[2020-12-28] MEDS ORDERED: pantoprazole 40mg Tablet.DR PO SCH (07:30)
--- NOTE | 2020-12-28 07:52 | NUR ---
Patient in room ED 1. I have received report from Virgen ARIAS from ED and had the opportunity to ask questions and assume patient care.
[2020-12-28] MEDS: piperacillin/tazo 3.375gm/50ml 50 ML IV SCH ×3 (08:00→16:00)
[2020-12-28] MEDS ORDERED: heparin, porcine 5000 units/ml vial SQ SCH (08:00)
[2020-12-28] MEDS ORDERED: K and/or MAG REPLACEMENT MC SCH (08:00)
[2020-12-28] MEDS ORDERED: BUPIVAcaine/PF 2.5mg/ml (0.25%) 10ml vial ONE (08:41)
[2020-12-28] MEDS: normal saline 1000ml 1,000 ML IV SCH (08:50)
--- NOTE | 2020-12-28 09:40 | NUR ---
pt went to surgery with Corky for an Appy
[2020-12-28] MEDS ORDERED: BUPIVAcaine 0.5% inj/PF 30 ML ONE (10:37)
[2020-12-28] MEDS ORDERED: fentaNYL/PF 50MCG/1 ML 2ML syringe ONE (10:44)
[2020-12-28] MEDS ORDERED: midazolam 1 mg/ML 2ml injection ONE (10:44)
[2020-12-28] MEDS ORDERED: rocuronium 10mg/ml inj IV ONE ×2 (10:44→10:47)
[2020-12-28] MEDS ORDERED: propofol inj 20 ML IV ONE (10:44)
[2020-12-28] MEDS ORDERED: sevoflurane 250ml liquid IH ONE (10:47)
[2020-12-28] MEDS ORDERED: ceFOXitin 1000 MG inj ONE ×2 (11:03→11:04)
[2020-12-28] MEDS ORDERED: neostigmine methylsulfate 1 MG/ML 10ml vial ONE (12:01)
[2020-12-28] MEDS ORDERED: glycopyrrolate 0.2mg/ml inj ONE (12:01)
[2020-12-28 12:16] VITALS: BP 164/96
--- NOTE | 2020-12-28 12:16 | NUR ---
Received from OR via SURGICAL BED , accompanied by Anesthesiologist JORGE A and report given by Anesthesiolgist. PATIENT WITH 20G PIV IN RIGHT UE RUNNING LR AT 100. PATIENT WITH 3 LAP SITES TO ABDOMEN THAT ARE ALL CDI. PATIENT WITH SCDS ODNNED. 10L MASK ON WITH 99% . VSS. Addendum: 12/28/20 at 1228 by Dave White RN, RN Amended: Links added.
[2020-12-28 12:26] VITALS: BP 155/85
[2020-12-28] MEDS ORDERED: morphine 2 MG/ML inj. syringe IV PRN (12:30)
[2020-12-28] MEDS ORDERED: meperidine/PF 25mg/ml syringe IV PRN ×3 (12:30)
[2020-12-28] MEDS ORDERED: morphine 4 MG/ML inj SYRINge IV PRN (12:30)
[2020-12-28] MEDS ORDERED: proCHLORperazine 10 MG/2 ml inj IV PRN (12:30)
[2020-12-28] MEDS ORDERED: ondansetron/PF 4mg/2ml inj IV PRN (12:30)
[2020-12-28] MEDS ORDERED: ringers solution, lacted 1,000 ML IV SCH (12:30)
[2020-12-28 12:36] VITALS: BP 161/102
[2020-12-28 12:46] VITALS: BP 174/101
[2020-12-28 12:56] VITALS: BP 147/80
--- NOTE | 2020-12-28 13:06 | NUR ---
PATIENT HAS MET ALL CRITERIA FOR TRANSFER TO THE SURGICAL/[facility]HEW/PCU/ORTHO/ICU FLOOR. VSS. DRESSINGS INTACT. BED LOW, CALL LIGHT PRESENT AND 2 RAILS UP. RN PRESENT TO ACCEPT CARE OF PATIENT AND REPORT HAS BEEN CALLED. ALL QUESTIONS ANSWERED TO ACCEPTING RN. HUGO ALBERTS PRESENT TO ASSESS PATIENT. VSS. PAIN DOWN TO A 4 AND STATES THAT THIS IS A TOLERABLE LEVEL. DRESSING TO ABDOMEN ARE CDI. REPORTED TO HUGO LANDAVERDE WELL. Addendum: 12/28/20 at 1330 by Dave Mariano - HUGO ARIAS Amended: Links added.
--- NOTE | 2020-12-28 16:00 | NUR ---
pt refused meds because he is being DC at 1700. He states he does not take anything at home.
[2020-12-28] MEDS ORDERED: HYDR-3965 PO (16:25)
--- NOTE | 2020-12-28 18:10 | NUR ---
Pt DC to home. Pt is A & O x4 and in no apparent distress. Pt verbalizes understanding of all DC orders. Pt was supposed to go since 1600 but was at work and could not get here until 1800. Pt understands the importance of following up with Dr Peñaloza. Pt is happy to go home. 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 pt states he doesn't take any medications and no narcotics. He will take Tylenol if he has pain. Pt's belongings were packed, pt;s IV was removed intact. Pt dressed himself and was wheeled to the front where his picked him up.
== END 2020-12-28 18:56 | disposition home or self-care (01) | DRG 343 ==
LOC: ER 20:09 → ED HOLD 22:46 → SUR 3N 12-28 07:56
PROVIDERS: ADMIT Internal Medicine; ATTEND Internal Medicine
PROC: 0DTJ4ZZ Resection of Appendix, Percutaneous Endoscopic Approach (ICD-10-PCS; principal; 2020-12-28 10:47)
DX: K35.30 Acute appendicitis with localized peritonitis, without perforation or gangrene (principal); F12.90 Cannabis use, unspecified, uncomplicated; Z20.822 Contact with and (suspected) exposure to COVID-19; F17.210 Nicotine dependence, cigarettes, uncomplicated; K76.0 Fatty (change of) liver, not elsewhere classified; Z90.49 Acquired absence of other specified parts of digestive tract; Z71.6 Tobacco abuse counseling
CPT/HCPCS: 99285; Z7506; Z7508; 36415; 74176; 80053; 81001; 82948; 83690; 83735; 85025; 85730; 87635; A4215; A4618; G0378; J0694; J1885; J2250; J2270; J2405; J2543; J2704; J2710; J3010; J3490; J7030